=== PATIENT | female | born 1975 | race Two or more races ===

== ENCOUNTER → 2016-06-03 | Outpatient (CLI) | payer MEDICAID ==
[~2016-06-03] MED LIST: ABIL30TA2 PO; CYMB30CA PO; GABA600T PO; HYDR-2376 PO; OMEP40CA2 PO; ROZE8TAB8 PO; SERO400T PO; ZYPR2.5T2 PO
[2016-06-03 14:41] LABS: AUTOMATED NEUTROPHIL # 2.9 TH/MM3 (1.8-7.7); BASOPHIL % 0.8 % (0.0-2.0); EOSINOPHIL # 0.1 TH/MM3 (0-0.4); EOSINOPHIL % 1.5 % (0.0-4.0); HEMO FLAGS DIFF FINAL; LYMPH % 38.5 % (9.0-44.0); LYMPHOCYTE # 2.2 TH/MM3 (1.0-4.8); MEAN CELL VOLUME 92.6 FL (80.0-100.0); MEAN CORPUSCULAR HEMOGLOBIN 30.3 PG (27.0-34.0); MEAN CORPUSCULAR HGB CONC 32.7 % (32.0-36.0); MONO % 7.4 % (0.0-8.0); NEUT % 51.8 % (16.0-70.0); PLATELET COUNT 183 TH/MM3 (150-450); RED CELL DISTRIBUTION WIDTH 13.1 % (11.6-17.2); WHITE BLOOD COUNT 5.6 TH/MM3 (4.0-11.0)
[2016-06-03 14:45] LABS: BLOOD, URINE TRACE (NEG); COMMENT (UR) CULT NOT INDICATED; CULTURE IF INDICATED CULT NOT INDICATED; GLUCOSE,URINE NEG (NEG); KETONE, URINE NEG (NEG); MUCUS URINE FEW /lpf (OCC); NITRITE,URINE NEG (NEG); SQUAMOUS EPITHELIAL CELL URINE 7 /hpf (0-5); URINE COLOR YELLOW (YELLW/STRAW)
[2016-06-03 15:09] LABS: ALKALINE PHOSPHATASE 103 U/L (45-117); ALT (GPT) 17 U/L (10-53); ANION GAP 8 MEQ/L (5-15); AST (GOT) 12 U/L (15-37); BICARBONATE 25.4 MEQ/L (21.0-32.0); BLOOD UREA NITROGEN 23 MG/DL (7-18); CHLORIDE 106 MEQ/L (98-107); GLOMERULAR FILTRATION RATE 98 ML/MIN (>89); GLUCOSE,FASTING 92 MG/DL (74-99); POTASSIUM 4.2 MEQ/L (3.5-5.1); SODIUM (NA) 139 MEQ/L (136-145); TOTAL BILIRUBIN ADULT 0.4 MG/DL (0.2-1.0)
[2016-06-03 15:11] LABS: BHCG SCREEN QUALITATIVE LESS THAN 1 MIU/ML (0-5)
== END ==
LOC: CPRE 14:15
PROVIDERS: ATTEND Obstetrics & Gynecology Gynecology
DX: Z01.812 Encounter for preprocedural laboratory examination (principal); R31.9 Hematuria, unspecified
CPT/HCPCS: 36415; 80053; 81001; 84703; 85025

== ENCOUNTER → 2016-06-13 | Day surgery (SDC) | payer MEDICAID ==
--- NOTE | 2016-06-03 14:46 | MH ---
cc: DAY PETERS MD, STANLEY DATE OF ADMISSION: 06/13/2016 REASON FOR ADMISSION Diagnostic cystoscopy with diagnosis of gross hematuria. HISTORY OF PRESENT ILLNESS The patient is a 41-year-old female 9, para 7, with issues with gross hematuria that is intermittent. Her cultures have been negative. She has had a CT scan that shows no significant abnormality or any sign of nephrolithiasis. She has no pain when she has hematuria and there is no exacerbating or previous bleeding factors that she can identify. The rationale has been put forth to her that the next step is moving forward with a diagnostic cystoscopy. PAST MEDICAL HISTORY The patient's medical history is notable for a mood disorder, otherwise negative for heart, lung or liver disease, hypertension, diabetes or stroke. MEDICATIONS 1. Gabapentin 600 mg q.h.s. 2. Seroquel 400 mg q.h.s. 3. Abilify 15 mg q. daily. SOCIAL HISTORY Smokes a pack a day, [id number] smoking history. No alcohol or drugs. OB HISTORY Seven vaginal deliveries. BONE TENDER HISTORY Does have a history of abnormal Pap smear. She has a general expeditor that she is following up for Pap smear issues. FAMILY HISTORY Noncontributory. ALLERGIES None. PAST SURGICAL HISTORY 1. LEEP cone procedure. 2. Tubal ligation. 3. Cholecystectomy. REVIEW OF SYSTEMS No chest pain, orthopnea, PND. No nausea, vomiting, fever or chills. No vaginal bleeding or discharge except as noted above. PHYSICAL EXAMINATION VITAL SIGNS: She is afebrile. Vital signs stable. Blood pressure 120/70. Height 4 feet 11 inches, weight 115 pounds. BMI is 23. GENERAL: The patient is alert and oriented in no acute distress. No sign of cognitive dysfunction or depression. HEENT: Within normal limits. NECK: Supple. No JVD. CHEST: Clear. HEART: Regular rate and rhythm. ABDOMEN: Soft, nontender. No hepatosplenomegaly. No CVA tenderness. PELVIC: Exam will be detailed under anesthesia. EXTREMITIES: Normal. SKIN: Without rashes. NEUROLOGIC: Nonfocal. No DVT signs. ASSESSMENT/PLAN Patient with intermittent gross hematuria with negative urine cultures and CT scan. We discussed options for management and treatment. She is aware of the risks, benefits and alternatives to planned procedure including damage to surrounding organs, bleeding, infection, the need for further procedure. The patient has made an informed choice to proceed. Will use DVT prophylaxis with sequential compression device and antibiotic prophylaxis with two grams of Ancef IV. Anticipate outpatient procedure. MD MYA Greco/KAREN /2:04 PM /2:31 PM
[~2016-06-13] VITALS: Ht 149.9 cm; Wt 54.2 kg
[~2016-06-13] MED LIST changes: +APREPITANT 40 MG CAP ONE; +CHLORHEXIDINE GLUCONATE 2 % 1 PACK (2 CLOTHS) TOPICAL PRN; +DEXAMETHASONE SOD PHOS 4 MG/ML VIAL ONE; +DIMETHICONE/OXYBENZONE/PADMIATE LIP BALM 4.25 GM TOPICAL ONE; +DO NOT ADM ANY ANTICOAGULANT DRUGS PRN; +FAMOTIDINE 20 MG/2 ML VIAL ONE; +INSULIN HUMAN REGULAR 1,000 UNITS/10 ML VIAL SQ PRN; +KETOROLAC TROMETHAMINE 10 MG TAB PO PRN; +KETOROLAC TROMETHAMINE 30 MG/ML (IVP) VIAL IV PUSH PRN; +KETOROLAC TROMETHAMINE 60 MG/2 ML (IM) VIAL IM ONE; +LACTATED RINGER'S 1000 ML IV PRN; +METOPROLOL TARTRATE 25 MG TAB PO PRN; +MIDAZOLAM HCL 2 MG/2 ML VIAL ONE; +ONDANSETRON HCL 4 MG/2 ML VIAL IV PUSH ONE; +ONDANSETRON HCL 4 MG/2 ML VIAL IV PUSH PRN; +POVIDONE IODINE 5% (ANTISEPSIS KIT) 4 APPLICATIONS EACH NARE PRN; +PROMETHAZINE HCL 25 MG SUPP RECTAL ONE; +PROPOFOL 200 MG/20 ML AMP IV ONE; +SCOPOLAMINE 1.5 MG PATCH ONE; +SODIUM CHLORID 0.9% 500 ML IV PRN; +ceFAZolin 2 GM PREMIX 50 ML IV SCH; +diphenhydrAMINE HCL 50 MG/ML VIAL ONE; +fentaNYL CITRATE 250 MCG/5 ML AMP ONE
[2016-06-13 06:48] VITALS: BP 111/68; PULSE 82; RESP 20; TEMP 99.2; O2SAT 98
[2016-06-13 10:38] VITALS: BP 105/58; PULSE 69; RESP 20; TEMP 98.2; O2SAT 99
--- NOTE | 2016-06-16 08:46 | MP ---
cc: DAY PETERS MD DATE OF SURGERY: 06/13/2016 PREOPERATIVE DIAGNOSES Intermittent gross hematuria, ICD-9 code R31.0, overactive bladder code N32.81. PROCEDURE Cystoscopy with hydrodistention, CPT code [address]5051. SURGEON Dr. Peters. ANESTHESIA Laryngeal mask. BLOOD LOSS None. 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 FLUIDS 1000 ccs crystalloid, distension medium, normal saline. FINDINGS External genitalia normal. POP-Q score: Aa is -1, Ap is -1, Point C is -6. Total vaginal length is 10. Genital hiatus is 6. Perineal body is 4. Bimanual exam is unremarkable. Cystoscopy shows a normal trigone, good coaptation of urethra. Ureteral orifices patent x2. Dome base of bladder normal. Urethra normal. With hydrodistention bladder capacity is 300 ccs at 45 cm of water pressure. Repeat cystoscopy shows no glomerulations, ulcerations, any signs of endometriosis or ominous findings. Urethra is normal with inspection. SPECIMENS None. COMPLICATIONS None. DISPOSITION Recovery stable. COUNTS Needle and sponge count correct. DRAINS None. ANTIBIOTIC PROPHYLAXIS Ancef 2 grams. DVT PROPHYLAXIS Sequential compression device. TIMEOUT Time-out procedure per protocol. SUMMARY OF INDICATION/PROCEDURE The patient with intermittent gross hematuria and over active bladder symptoms. Her CT scan has been negative. Her recent urinalysis prior to surgery today is essentially negative. She does note that she is having her menses today and she was concerned that this was coming from the bladder. The patient was seen in the operating theater, identified and prepped and draped in a fashion appropriate for the planned procedure. She was in dorsal lithotomy position with careful attention paid to placement of legs in stirrups to avoid undue stress to sensitive neurovascular structures. Above findings noted. Neurovascular integrity documented. The cystoscope was placed, 17-[place] bridge, a 70 degree scope. The above findings were noted. No significant change after hydrodistention. Procedure is concluded. The patient was reversed from anesthesia, taken to the recovery room in stable condition. At this point I have no clear etiology of her intermittent gross hematuria that she describes, it is possible that if she has bleeding from the bladder during her menses, it could be endometriosis issue but there is no evidence of that today. It is also possible the patient is confusing vaginal bleeding with urethral bleeding. MD MYA Greco/TLL 8:59 AM 8:25 AM
== END | disposition home or self-care (01) ==
LOC: HSDC 05:42
PROVIDERS: ATTEND Obstetrics & Gynecology Gynecology
DX: R31.0 Gross hematuria (principal); F17.210 Nicotine dependence, cigarettes, uncomplicated
CPT/HCPCS: 00910; 52000; J0690; J1100; J1200; J1885; J2250; J2405; J3010; J7120; J8501